=== PATIENT | male | born 1995 | race Hispanic/Latino ===

== ENCOUNTER → 2016-10-12 | Outpatient (CLI) | payer OTHER ==
[~2016-10-12] VITALS: Ht 160 cm; Wt 77.3 kg
[~2016-10-12] MED LIST: IMITREX50 MG PO; NAPROSYN500 MG PO; PEN-VEE K,VEET500 MG PO; ULTRAM50 MG PO
== END | disposition home or self-care (01) ==
LOC: AMB 08:30
PROC: 0DJD8ZZ Inspection of Lower Intestinal Tract, Via Natural or Artificial Opening Endoscopic (ICD-10-PCS; principal; 2016-10-12)
DX: K92.1 Melena (principal); K64.8 Other hemorrhoids; E78.1 Pure hyperglyceridemia; E66.3 Overweight; Z83.3 Family history of diabetes mellitus; Z68.29 Body mass index [BMI] 29.0-29.9, adult

== ENCOUNTER 2017-03-29 22:27 | Emergency (ER) | payer OTHER ==
[~2017-03-29] VITALS: Ht 160 cm; Wt 83.0 kg
[2017-03-29 22:31] VITALS: BP 148/94
[2017-03-29 22:52] LABS: HEMATOCRIT 43.1 % (38.0-50.0); MCH 30.3 PG (29.0-34.0); MCHC 34.8 G/DL (30.0-36.0); MCV 87.1 FL (86-99); MEAN PLAT.VOLUME 9.3 uM^3 (9.0-12.4); PLATELET COUNT 259 K/uL (156-360); RBC DIS.WIDTH-CV 11.8 % (11.8-14.6); RBC DIS.WIDTH-SD 37.3 % (39-53); RED BLOOD COUNT 4.95 M/uL (4.00-5.50); WHITE BLOOD COUNT 7.7 K/uL (4.1-10.2)
[2017-03-29 23:13] LABS: CHLORIDE 108 mEq/L (99-109); SODIUM 140 mEq/L (136-147)
[2017-03-29 23:14] LABS: GLUCOSE 90 mg/dL (70-99)
[2017-03-29 23:16] LABS: ANION GAP 7 MEQ/L (2-14)
[2017-03-29 23:18] LABS: GFR ESTIMATE (CALCULATED) > 59 mL/min/
[2017-03-29 23:19] LABS: UREA NITROGEN (BUN) 12 mg/dL (9-23)
== END 2017-03-30 01:38 | disposition left against medical advice (07) ==
LOC: EME 22:27
DX: K62.5 Hemorrhage of anus and rectum (principal); Z53.21 Procedure and treatment not carried out due to patient leaving prior to being seen by health care provider
CPT/HCPCS: 80048; 85027

== ENCOUNTER 2017-10-25 11:08 | Day surgery (SDC) | payer OTHER ==
[~2017-10-25] VITALS: Ht 160 cm; Wt 81.6 kg
[2017-10-25 11:36] VITALS: BP 120/79
[2017-10-25 16:55] VITALS: BP 124/88
[2017-10-25 17:16] VITALS: BP 132/86
== END 2017-10-25 17:40 | disposition home or self-care (01) ==
LOC: SDC 11:08
PROC: 0SRM0JZ Replacement of Right Metatarsal-Phalangeal Joint with Synthetic Substitute, Open Approach (ICD-10-PCS; principal; 2017-10-25)
DX: M19.271 Secondary osteoarthritis, right ankle and foot (principal); M20.21 Hallux rigidus, right foot; M25.571 Pain in right ankle and joints of right foot; M25.774 Osteophyte, right foot
CPT/HCPCS: 73630; 76000; 88304; 88311; J0131; J0690; J2250; J3010; S0020